=== PATIENT | male | born 1995 | race Caucasian/White ===

== ENCOUNTER 2024-11-08 09:11 | Outpatient (AMB) | payer BC, SELFPAY ==
[2024-11-08 09:16] VITALS: BP 118/70; PULSE 69; TEMP 36.6; O2SAT 98; BMI 26.5
--- NOTE | 2024-11-08 09:16 | AM.OFFWIN_ITS ---
Intake Vital Signs 3 11/08/24 09:16 Height 5 ft 10 in Weight 185 lb BMI 26.5 BP 118/70 Blood Pressure Location Lt brachial Position Sitting Pulse 69 Pulse Source Pulse Oximeter Temp 97.8 F Temp Source Oral Pulse Oximetry (%) 98 Oxygen Delivery Method Room Air Intake Visit Reasons: [employer] Skin infection? Patient Tobacco Use Status: Never used Tobacco Accompanied by: Self / Same As Patient Allergies penicillin G Allergy (Mild, Verified 11/08/24 09:51) Rash Medication List - Last Reconciled 11/08/24 [facility] No Known Home Meds Do you need a note to return to daycare/school/sports/work: No HPI HPI Comments 2 History of Present Illness0 Details History of Present Illness - The patient is a 29-year-old male pres enting with concern over potential skin infection. - Suspected Tinea Corporis, initially on back, now spreading. - Described as circular and non-pruritic . - Denies itchiness, close contacts unaff ected. - Plays hockey; sports gear as potential transmission source. - No prior antifungal treatment applied. - Allergy to Penicillin noted. Review of Systems - Integumentary: Reports non-itchy, circ ular skin lesions on back and spreading areas. Denies itchiness. - Allergies: Reports allergy to Penicill in. - Social: Denies contacts with similar c ondition; Notes playing hockey. Physical Exam Discussion Notes I discussed with the patient the likelihood of the skin lesion being Tinea Corporis (Ringworm) based on its appearance and his history of playing hockey. I advised the patient on the importance of cleaning sports equipment and using antifungal sprays for hygiene. I explained the treatment would include an antifungal cream, which I'll prescribe, instructing application on affected areas and any new lesions that may appear. I emphasized the necessity of continuing application for improvement over time. I also advised washing sheets in hot water after 24 hours of treatment as a precautionary measure. The patient was informed about the fungal infection's mild contagiousness, particularly in shared close quarters and via shared equipment. The patient was reassured that while the condition is not severely contagious like chickenpox, precautions should still be taken. The prescription is sent to the patient's preferred pharmacy with a plan for several refills as the condition may take time to resolve. The patient acknowledged understanding and expressed no further questions. Assessment and Plan 1. Tinea Corporis (Ringworm) - Prescribe antifungal cream; apply to l esions. - Clean sports equipment; wash bedding i n hot water. - Several refills due to potentially pro longed treatment. Patient Instructions - Apply the prescribed cream to the affe cted skin areas. - Clean all sports equipment thoroughly after use. - Wash your sheets and bedding in hot wa ter after 24 hours of starting treatment. - Complete all refills of prescription a s discussed for full treatment. Consent Patient was informed and verbally consented to the use of an ambient scribe for clinic note documentation during this visit. [facility] Social History Patient Tobacco Use Status: Never used Tobacco Physical Exam Vital Signs: Last Vital Signs Temp 97.8 F 11/08/24 09:16 Pulse 69 11/08/24 09:16 BP 118/70 11/08/24 09:16 Pulse Ox 98 11/08/24 09:16 Oxygen Delivery Method Room Air 11/08/24 09:16 BMI result Body Mass Index 26.5 Assessment & Plan Assessment & Plan (1) Tinea cruris: Code(s): B35.6 - Tinea cruris Plan / Medications: New 2 naftifine 2% continue until rash is resolved. 1 appl topical BEDTIME 2 weeks 60 grams 3RF Coding Level of Care Code Est Pt Level 3 (58764) Diagnoses Tinea cruris B35.6
== END 2024-11-08 10:14 | disposition home or self-care (01) ==
PROVIDERS: PCP Pediatrics; Visit Provider Nurse Practitioner Family
DX: B35.6 Tinea cruris (principal)

== ENCOUNTER → 2024-11-08 09:11 | Outpatient (BNVA) | payer BC, SELFPAY | PROVIDERS: PCP Pediatrics; Visit Provider Nurse Practitioner Family | DX: Z13.89 Encounter for screening for other disorder (principal) ==